=== PATIENT | female | born 1985 | race African-American/Black ===

== ENCOUNTER 2018-01-03 20:17 | Emergency (ER) | payer MEDICAID ==
[~2018-01-03] VITALS: Ht 157.5 cm; Wt 63.0 kg
[2018-01-03 20:30] VITALS: BP 112/69
[2018-01-03] MEDS ORDERED: DiphenhydrAMINE 50mg/ml Inj IM ONE (21:00)
[2018-01-03] MEDS ORDERED: Morphine Sulfate 4mg/ml Inj IM ONE (21:00)
[2018-01-03 21:17] LABS: APPEARANCE,URINE CLEAR; BILIRUBIN, URINE NEGATIVE (NEGATIVE); COLOR,URINE PALE YELLOW; GLUCOSE, URINE (UA) NEGATIVE (NEGATIVE); KETONES,URINE NEGATIVE (NEGATIVE); LEUKOCYTE ESTERASE ,URINE NEGATIVE (NEGATIVE); NITRITE,URINE NEGATIVE (NEGATIVE); PH,URINE 6 (4.5-8.0); PROTEIN,URINE NEGATIVE (NEGATIVE); UROBILINOGEN,URINE 1 MG/DL (0.0-1.0)
[2018-01-03 21:45] VITALS: BP 112/69
[2018-01-03] MEDS ORDERED: Morphine Sulfate 4mg/ml Inj ONE (21:47)
--- NOTE | 2018-01-04 07:12 | Emergency Room Report ---
History of Present Illness General Chief Complaint: Pain Source: Patient Present Illness HPI Patient is a 32-year-old female who presented after increased generalized body pain. Patient prior history of sickle cell disease. She denies any fever. She denies any dizziness or lightheadedness. She reports having similar symptoms previously. Patient states that she is has been taking her medications include hydroxyurea as well as multiple other medications. The patient denies any vomiting or diarrhea Allergies: Coded Allergies: KETOROLAC (Verified Allergy, Mild, 01/03/18) METOCLOPRAMIDE (Unverified Allergy, Unknown, 01/03/18) PROCHLORPERAZINE (Unverified Allergy, Unknown, 01/03/18) Patient History Past Medical History: see triage record Last Menstrual Period: 12/19/17 Now: No : 4 Para: 2 Reviewed Nursing Documentation: PMH: Agreed; PSxH: Agreed Nursing Documentation-PMH Hx Cardiac Problems: Yes - Sickle Cell Anemia Hx Asthma: Yes Hx Neurological Problems: Yes - Depression, anxiety, PTSD Review of Systems All Other Systems: negative except mentioned in HPI Physical Exam Vital Signs Date Time Temp Pulse Resp B/P (MAP) Pulse Ox O2 Delivery O2 Flow Rate FiO2 01/03/18 20:24 98.8 83 16 112/69 99 Room Air 98.8 General Appearance: well appearing, no apparent distress, alert, GCS 15, non- toxic Head: normocephalic, atraumatic Eyes: bilateral eye PERRL, bilateral eye other - conjunctiva pink ENT: hearing grossly normal, normal voice Neck: full range of motion, supple Respiratory: no respiratory distress, speaking full sentences Cardiovascular #1: normal inspection, normal peripheral pulses, regular rate, rhythm Gastrointestinal: normal inspection, normal bowel sounds, non tender, soft Musculoskeletal: no calf tenderness Neurologic: normal gait Psychiatric: mood/affect normal Skin: no rash Medical Decision Making Diagnostic Impression: Primary Impression: Chronic pain Additional Impression: Sickle cell anemia ER Course Patient presented for sickle cell pain. Differential diagnosis included but was not limited to have sickle cell pain crisis, aplastic crisis, sequestration , osteomyelitis, acute chest syndrome among others. Patient has a benign exam and does not appear to require any further imaging or laboratory testing at this time. The patient was given IM pain medications. the patient improvement in symptoms and subsequently discharge.The patient is advised to follow up with primary care doctor in 1-2 days. Patient is advised to return if any worsening condition or if any changes in status that are concerning. This report is dictated with [employer] proposal development manager software which may occasionally lead to discrepancies related to use of this software. Labs Test 01/03/18 20:55 Urine Color Pale yellow Urine Appearance Clear Urine pH 6 (4.5-8.0) Urine Specific [place]roix 1.015 (1.005-1.035) Urine Protein Negative (NEGATIVE) Urine Glucose (UA) Negative (NEGATIVE) Urine Ketones Negative (NEGATIVE) Urine Occult Blood Negative (NEGATIVE) Urine Nitrite Negative (NEGATIVE) Urine Bilirubin Negative (NEGATIVE) Urine Urobilinogen 1 MG/DL (0.0-1.0) Urine Leukocyte Esterase Negative (NEGATIVE) Last Vital Signs Date Time Temp Pulse Resp B/P (MAP) Pulse Ox O2 Delivery O2 Flow Rate FiO2 01/03/18 21:45 98.8 01/03/18 21:45 16 112/69 99 Room Air 01/03/18 20:24 83 Status: improved Disposition: HOME, SELF-CARE Condition: Stable Referrals: NON PHYSICIAN (PCP) Patient Instructions: Sickle Cell Anemia, Adult Additional Instructions: Follow up with your c iron worker for recheck in 1-2 days Selvin Lee January 04, 2018 07:12
== END 2018-01-03 21:45 | disposition home or self-care (01) ==
LOC: EMR 21:35
DX: G89.29 Other chronic pain (principal); D57.1 Sickle-cell disease without crisis; J45.909 Unspecified asthma, uncomplicated; F32.9 Major depressive disorder, single episode, unspecified
CPT/HCPCS: 81003; 96372; 99283; J1200; J2270

== ENCOUNTER 2018-02-10 16:55 | Inpatient (IN) | payer MEDICAID ==
[~2018-02-10] VITALS: Ht 157.5 cm; Wt 64.4 kg
[2018-02-10 17:28] VITALS: BP 97/64
[2018-02-10] MEDS ORDERED: Morphine Sulfate 10mg/ml Inj IVP ONE ×2 (17:30→22:00)
--- NOTE | 2018-02-10 18:00 | Emergency Room Report ---
History of Present Illness General Chief Complaint: Pain Source: Patient, Medical Record Present Illness HPI 32-year-old female with history of sickle cell disease complains of having a pain crisis involving her back bilateral hips that has been on for 4 days she reports she thinks is secondary to having recent dilatation and curettage about 1 week ago. She reports she is no longer having vaginal bleeding but thinks she did lose a lot of blood at that time. She denies fevers, chest pain, abdominal pain, dysuria, hematuria, frequency, vomiting or diarrhea or any other symptoms. She reports the pain is typical over 60 pain crisis throbbing and severe, reports minimal relief with home Dilaudid 4 mg by mouth tablets. Allergies: Coded Allergies: KETOROLAC (Verified Allergy, Mild, 01/03/18) METOCLOPRAMIDE (Unverified Allergy, Unknown, 01/03/18) PROCHLORPERAZINE (Unverified Allergy, Unknown, 01/03/18) Patient History Past Medical History: see triage record Last Menstrual Period: d&c done 1 week ago Reviewed Nursing Documentation: PMH: Agreed; PSxH: Agreed Nursing Documentation-PMH Past Medical History: No History, Except For Hx Cardiac Problems: Yes - Sickle Cell Anemia Hx Asthma: Yes Hx Neurological Problems: Yes - Depression, anxiety, PTSD Review of Systems All Other Systems: negative except mentioned in HPI Physical Exam Vital Signs Date Time Temp Pulse Resp B/P (MAP) Pulse Ox O2 Delivery O2 Flow Rate FiO2 02/10/18 17:00 99.0 84 18 97/64 100 Room Air 99.0 Sp02 EP Interpretation: reviewed, normal General Appearance: no apparent distress, alert, non-toxic Head: normocephalic Eyes: bilateral eye normal inspection, bilateral eye PERRL, bilateral eye EOMI ENT: normal ENT inspection, hearing grossly normal, normal pharynx, no angioedema, normal voice, moist mucus membranes Neck: normal inspection, full range of motion, supple, supple/symm/no masses Respiratory: chest non-tender, lungs clear, normal breath sounds, chest symmetrical, palpation of chest normal Cardiovascular #1: normal peripheral pulses, regular rate, rhythm Cardiovascular #2: 2+ radial (R), 2+ radial (L) Gastrointestinal: normal inspection, non tender, soft, no mass, no guarding, no rebound Rectal: deferred Genitourinary: normal inspection, no CVA tenderness Musculoskeletal: back normal, gait/station normal, normal range of motion, non- tender, no calf tenderness Neurologic: alert, responsive, striping machine operator III-XII nml as tested, motor strength/tone normal, sensory intact, speech normal Psychiatric: judgement/insight normal, memory normal, mood/affect normal, no suicidal/homicidal ideation Skin: normal color, no rash, warm/dry, normal turgor Lymphatic: no adenopathy Medical Decision Making Diagnostic Impression: Primary Impression: Sickle cell anemia Additional Impression: Chronic pain ER Course Patient doing well, in no distress, but complaining of severe pain. Was given morphine IM x2, then I placed an IV using US, so will give 3rd dose of 10mg morphine. Last Vital Signs Date Time Temp Pulse Resp B/P (MAP) Pulse Ox O2 Delivery O2 Flow Rate FiO2 02/10/18 17:28 99.0 84 18 97/64 100 Room Air 99.0 Disposition: ADMITTED INPATIENT Condition: Stable Signed Out To: Dr. Manjarrez to admit for persistent SC pain KHADIJAH YUAN M.D Feb 10, 2018 18:00
[2018-02-10 18:36] LABS: ANION GAP 10 mmol/L (5-15); BLOOD UREA NITROGEN 10 mg/dL (7-18); CALCIUM 8.8 MG/DL (8.5-10.1); CARBON DIOXIDE 22 MMOL/L (21-32); CHLORIDE 102 MMOL/L (98-107); CREATININE 0.6 MG/DL (0.55-1.30); POTASSIUM 3.8 MMOL/L (3.5-5.1); SODIUM 134 MMOL/L (136-145)
[2018-02-10] MEDS ORDERED: Morphine Sulfate 10mg/ml Inj IM ONE (19:15)
[2018-02-10] MEDS ORDERED: ZOLOFT25 MG ORAL (19:33)
[2018-02-10] MEDS ORDERED: FOLIC ACID1 MG ORAL (19:33)
[2018-02-10] MEDS ORDERED: SEROQUEL200 MG ORAL (19:33)
[2018-02-10] MEDS ORDERED: ZOFRAN4 M3 ORAL (19:33)
[2018-02-10] MEDS ORDERED: BENADRYL25 MG ORAL (19:33)
[2018-02-10] MEDS ORDERED: IRON159 MG PO (19:33)
[2018-02-10] MEDS ORDERED: HYDREA500 MG PO (19:33)
[2018-02-10] MEDS ORDERED: TRAZODONE HCL150 MG ORAL (19:33)
[2018-02-10] MEDS ORDERED: HYDROMORPHO1 MG/1 M4 PO (19:33)
[2018-02-10 20:06] VITALS: BP 106/71
[2018-02-10 20:29] LABS: BASOPHILS % (AUTO) 0.5 % (0.0-2.0); EOSINOPHILS % (AUTO) 1.6 % (0.0-3.0); HEMATOCRIT 33.4 % (37.0-47.0); HEMOGLOBIN 10.3 G/DL (12.0-16.0); LYMPHOCYTES % (AUTO) 20.9 % (20.0-45.0); MEAN CORPUSCULAR VOLUME 84 FL (80-99); MONOCYTES % (AUTO) 4.9 % (1.0-10.0); PLATELET COUNT 245 K/UL (150-450); RED BLOOD COUNT 3.96 M/UL (4.20-5.40); WHITE BLOOD COUNT 6.9 K/UL (4.8-10.8)
[2018-02-11 00:15] VITALS: BP 118/73
[2018-02-11] MEDS ORDERED: TRAZODONE HCL50 MG ORAL (00:40)
[2018-02-11] MEDS ORDERED: FERROUS SULFAT325 MG ORAL (00:40)
[2018-02-11] MEDS ORDERED: ZOLOFT100 MG ORAL (00:40)
[2018-02-11] MEDS ORDERED: SERTRALINE HCL50 MG ORAL (00:40)
[2018-02-11] MEDS ORDERED: HYDROMORPHONE HC4 M1 PO (00:40)
[2018-02-11] MEDS ORDERED: HYDROmorphone 4mg tab ORAL PRN ×2 (00:45→14:15)
[2018-02-11] MEDS: Morphine Sulfate 4mg/ml Inj SUBQ PRN ×2 (01:06→09:53)
[2018-02-11] MEDS: QUEtiapine 200mg tab ORAL SCH ×4 (01:12→21:27)
[2018-02-11 08:00] VITALS: BP 100/62
[2018-02-11] MEDS: Hydroxyurea 500mg cap ORAL SCH ×3 (09:53→21:28)
[2018-02-11] MEDS: Sertraline 50mg tab ORAL SCH (09:53)
[2018-02-11] MEDS: TraZODone 50mg tab ORAL SCH ×3 (09:53→21:27)
[2018-02-11] MEDS ORDERED: Heparin 2000 units/Ns 1000ml INJ PRN (10:15)
[2018-02-11] MEDS ORDERED: Lidocaine 1% Plain 30 ml INJ PRN (10:15)
[2018-02-11 12:00] VITALS: BP 98/49
--- NOTE | 2018-02-11 12:45 | History and Physical Report ---
DATE OF ADMISSION: 02/10/2018 HISTORY OF PRESENT ILLNESS: This is a 32-year-old female, who has a history of sickle cell disease. She reports having three to four crises every six months. She reports [facility] This occurred about a week or so ago. She states she started having a crisis and she came to the [facility] for management and care. The patient reports that she takes Dilaudid 4 mg every six hours at home. PAST MEDICAL HISTORY: Notable for sickle cell disease, depression, anxiety, PTSD, and previous partial splenectomy. ALLERGIES: Toradol, Reglan, and procarbazine. HOME MEDICATIONS: Include Dilaudid, hydroxyurea, folic acid, trazodone, Zoloft, Benadryl, and Zofran. REVIEW OF SYSTEMS: The patient denies any headaches, hematemesis, melena, hematochezia, or weight loss. PHYSICAL EXAMINATION: GENERAL: Reveals a young female. VITAL SIGNS: Blood pressure is 100/60, heart rate is 74, saturations 100% on room air, and she is afebrile. HEENT: Unremarkable. LUNGS: Clear breath sounds bilaterally. ABDOMEN: Soft. NEUROLOGIC: Nonfocal. LABORATORY DATA: Laboratory testing shows normal CBC except hemoglobin of 10.3, there is mild microcytosis and hypochromia. Sodium 134, remaining laboratories unremarkable. IMPRESSION: 1. Sickle cell crisis. 2. Sickle cell disease. 3. Previous partial splenectomy. 4. History of previous D and C. 5. PTSD. 6. Depression. 7. Anxiety. DISCUSSION: Admitted to the hospital. Continue home medications. We will request a PICC line. We will request pain management consultation. Morphine to be given subcutaneous in the interim. We will follow. Javan Manjarrez M.D. DR: BRYNN JOB#: [id number] CC:
[2018-02-11] MEDS: Morphine Sulfate 4mg/ml Inj IVP PRN ×3 (15:01→22:48)
--- NOTE | 2018-02-11 15:56 | Diagnostic Imaging Report ---
Indications: Needs long-term IV access Technique: Ultrasound confirms patent compressible left basilic vein. Total sterile technique, including sterile probe cover and sterile gel, hat, mask,, sterile gown, large sterile drape, and preparation with 2% chlorhexidine utilized. Local anesthesia with 1% lidocaine. Under real-time ultrasound guidance, puncture basilic vein using 21-gauge needle, documented and archived, passage 0.018 guidewire under direct fluoroscopy, which was used to determine appropriate catheter length, exchange for 5 Italian peel-away sheath. 5 Italian Bard dual-lumen power PICC cut to 42 cm. It was inserted through the peel-away sheath. Peel-away sheath and guidewire removed. Catheter fixed to the skin. Both catheter ports aspirated and flushed. Patient tolerated procedure well, without immediate complication. Digital radiograph documents satisfactory catheter tip position, at the cavoatrial junction. Total fluoroscopy time 0.2 minutes. Total dose area product 6.8 dGycm2 Impression: Successful placement of left arm PICC under sonographic and fluoroscopic guidance, as described above.
[2018-02-11 16:00] VITALS: BP 102/53
[2018-02-11] MEDS ORDERED: DiphenhydrAMINE 50mg/ml Inj IVP ONE (17:00)
[2018-02-11 20:00] VITALS: BP 108/65
[2018-02-11] MEDS: Dyna-Hex 2% Top Sol 2oz TOPIC SCH (20:00)
[2018-02-11] MEDS: Sertraline 100mg tab ORAL SCH (21:28)
[2018-02-12] VITALS: BP 107/64
[2018-02-12] MEDS: Morphine Sulfate 4mg/ml Inj IVP PRN ×6 (00:21→20:17)
[2018-02-12 04:00] VITALS: BP 106/72
[2018-02-12 08:00] VITALS: BP 140/70
[2018-02-12] MEDS: TraZODone 50mg tab ORAL SCH ×2 (08:24→20:51)
[2018-02-12] MEDS: Sertraline 50mg tab ORAL SCH (08:24)
[2018-02-12] MEDS: QUEtiapine 200mg tab ORAL SCH ×2 (08:24→20:51)
[2018-02-12] MEDS: Hydroxyurea 500mg cap ORAL SCH ×2 (08:24→20:51)
--- NOTE | 2018-02-12 08:27 | Pulmonology Progress Note ---
Assessment/Plan Assessment/Plan 1. Sickle cell crisis. 2. Sickle cell disease. 3. Previous partial splenectomy. 4. History of previous D and C. 5. PTSD. 6. Depression. 7. Anxiety. DISCUSSION: Admitted to the hospital. Continue home medications. S/p PICC line. I will again request pain management consultation. Morphine to be given subcutaneous in the interim. Subjective Interval Events: PICC line in place; on IV fluids Constitutional: Reports: other HEENT: Repors: no symptoms Respiratory: Reports: no symptoms Cardiovascular: Reports: no symptoms Gastrointestinal/Abdominal: Reports: no symptoms - pain Allergies: Coded Allergies: KETOROLAC (Verified Allergy, Mild, 01/03/18) METOCLOPRAMIDE (Unverified Allergy, Unknown, 01/03/18) PROCHLORPERAZINE (Unverified Allergy, Unknown, 01/03/18) Objective Last 24 Hour Vital Signs Date Time Temp Pulse Resp B/P (MAP) Pulse Ox O2 Delivery O2 Flow Rate FiO2 02/12/18 08:24 98.3 02/12/18 04:00 98.3 80 19 106/72 100 Room Air 98.3 02/12/18 00:00 98.6 90 20 107/64 98 Room Air 98.6 02/11/18 22:27 97.9 02/11/18 21:28 97.9 02/11/18 20:00 98.5 74 19 108/65 100 Room Air 98.5 02/11/18 19:18 97.9 02/11/18 18:48 97.9 02/11/18 16:00 97.9 82 20 102/53 100 Room Air 97.9 02/11/18 15:01 97.9 02/11/18 12:00 97.9 83 20 98/49 99 Room Air 97.9 02/11/18 10:23 98.0 02/11/18 09:53 98.0 Intake and Output 02/11/18 02/12/18 19:00 07:00 Intake Total 320 ml 700 ml Balance 320 ml 700 ml Intake Oral 220 ml IV Total 100 ml 700 ml # Voids 4 2 General Appearance: no acute distress HEENT: normocephalic Respiratory/Chest: chest wall non-tender, lungs clear Cardiovascular: normal peripheral pulses, normal rate Current Medications Medications (Trade) Dose Ordered Sig/Dileep Route PRN Reason Start Time Stop Time Status Last Admin Dose Admin Chlorhexidine Gluconate (Dannielle-Hex 2%) 1 applic DAILY@2000 TOPIC 02/11/18 20:00 03/13/18 19:59 02/11/18 20:00 Diphenhydramine HCl (Benadryl) 50 mg Q4H PRN ORAL Itching 02/11/18 00:45 03/13/18 00:44 Heparin Sodium/ Sodium Chloride (Heparin 2000 units/Ns 1000ml premix) 2,000 unit ONCE PRN INJ FOR PICC LINE PLACEMENT 02/11/18 10:15 02/13/18 10:14 Hydromorphone HCl (Dilaudid) 4 mg Q4H PRN ORAL Breakthrough Pain 02/11/18 14:15 02/18/18 14:14 02/11/18 21:28 Hydroxyurea (Hydrea) 500 mg Q12HR ORAL 02/11/18 21:00 02/16/18 08:59 02/12/18 08:24 Lidocaine HCl (Xylocaine 1% 30ml) 30 ml ONCE PRN INJ FOR PICC LINE PLACEMENT 02/11/18 10:15 02/13/18 10:14 Morphine Sulfate (Morphine Sulfate) 4 mg Q4H PRN IVP Severe Pain (Pain Scale 7-10) 02/11/18 15:00 02/18/18 14:59 02/12/18 08:24 Ondansetron HCl (Zofran) 8 mg Q4HR PRN ORAL Nausea & Vomiting 02/11/18 00:45 03/13/18 00:44 Quetiapine Fumarate (SEROquel) 400 mg Q12HR ORAL 02/11/18 21:00 03/13/18 00:56 02/12/18 08:24 Sertraline HCl (Zoloft) 50 mg DAILY ORAL 02/11/18 09:00 03/13/18 08:59 02/12/18 08:24 Sertraline HCl (Zoloft) 100 mg BEDTIME ORAL 02/11/18 21:00 03/13/18 20:59 02/11/18 21:28 Sodium Chloride 1,000 ml @ 100 mls/hr Q10H IV 02/11/18 16:45 03/13/18 16:44 02/12/18 03:10 Trazodone HCl (Desyrel) 50 mg Q12HR ORAL 02/11/18 21:00 03/13/18 08:59 02/12/18 08:24 Javan Manjarrez MD Feb 12, 2018 08:27
--- NOTE | 2018-02-12 08:48 | Consultation ---
History of Present Illness General Date patient seen: Feb 12, 2018 Chief Complaint: Present Illness Allergies: Coded Allergies: KETOROLAC (Verified Allergy, Mild, 01/03/18) METOCLOPRAMIDE (Unverified Allergy, Unknown, 01/03/18) PROCHLORPERAZINE (Unverified Allergy, Unknown, 01/03/18) Medication History Scheduled Ferrous Sulfate* (Ferrous Sulfate*), 325 MG ORAL DAILY, (Reported) Folic Acid* (Folic Acid*), 1 MG ORAL DAILY, (Reported) Hydroxyurea* (Hydrea*), 400 MG PO BID, (Reported) Quetiapine Fumarate* (Seroquel*), 400 MG ORAL TWICE A DAY, (Reported) Sertraline Hcl* (Zoloft*), 100 MG ORAL HS, (Reported) Sertraline Hcl* (Zoloft*), 50 MG ORAL DAILY, (Reported) Trazodone Hcl* (Desyrel*), 50 MG ORAL BID, (Reported) Scheduled PRN Diphenhydramine Hcl* (Benadryl*), 50 MG ORAL Q4H PRN for Itching, (Reported) Hydromorphone Hcl (Hydromorphone Hcl), 4 MG PO Q4HR PRN for For Pain, (Reported) Ondansetron* (Zofran*), 8 MG ORAL Q4HR PRN for Nausea & Vomiting, (Reported) Patient History Healthcare decision maker Resuscitation status Full Code Advanced Directive on File Physical Exam Last 24 Hour Vital Signs Date Time Temp Pulse Resp B/P (MAP) Pulse Ox O2 Delivery O2 Flow Rate FiO2 02/12/18 08:24 98.3 02/12/18 04:00 98.3 80 19 106/72 100 Room Air 98.3 02/12/18 00:00 98.6 90 20 107/64 98 Room Air 98.6 02/11/18 22:27 97.9 02/11/18 21:28 97.9 02/11/18 20:00 98.5 74 19 108/65 100 Room Air 98.5 02/11/18 19:18 97.9 02/11/18 18:48 97.9 02/11/18 16:00 97.9 82 20 102/53 100 Room Air 97.9 02/11/18 15:01 97.9 02/11/18 12:00 97.9 83 20 98/49 99 Room Air 97.9 02/11/18 10:23 98.0 02/11/18 09:53 98.0 Intake and Output 02/11/18 02/12/18 19:00 07:00 Intake Total 320 ml 700 ml Balance 320 ml 700 ml Intake Oral 220 ml IV Total 100 ml 700 ml # Voids 4 2 Height (Feet): 5 Height (Inches): 2.00 Weight (Pounds): 142 Medications Current Medications Medications (Trade) Dose Ordered Sig/Dileep Route PRN Reason Start Time Stop Time Status Last Admin Dose Admin Chlorhexidine Gluconate (Dannielle-Hex 2%) 1 applic DAILY@2000 TOPIC 02/11/18 20:00 03/13/18 19:59 02/11/18 20:00 Diphenhydramine HCl (Benadryl) 50 mg Q4H PRN ORAL Itching 02/11/18 00:45 03/13/18 00:44 Heparin Sodium/ Sodium Chloride (Heparin 2000 units/Ns 1000ml premix) 2,000 unit ONCE PRN INJ FOR PICC LINE PLACEMENT 02/11/18 10:15 02/13/18 10:14 Hydromorphone HCl (Dilaudid) 4 mg Q4H PRN ORAL Breakthrough Pain 02/11/18 14:15 02/18/18 14:14 02/11/18 21:28 Hydroxyurea (Hydrea) 500 mg Q12HR ORAL 02/11/18 21:00 02/16/18 08:59 02/12/18 08:24 Lidocaine HCl (Xylocaine 1% 30ml) 30 ml ONCE PRN INJ FOR PICC LINE PLACEMENT 02/11/18 10:15 02/13/18 10:14 Morphine Sulfate (Morphine Sulfate) 4 mg Q4H PRN IVP Severe Pain (Pain Scale 7-10) 02/11/18 15:00 02/18/18 14:59 02/12/18 08:24 Ondansetron HCl (Zofran) 8 mg Q4HR PRN ORAL Nausea & Vomiting 02/11/18 00:45 03/13/18 00:44 Quetiapine Fumarate (SEROquel) 400 mg Q12HR ORAL 02/11/18 21:00 03/13/18 00:56 02/12/18 08:24 Sertraline HCl (Zoloft) 50 mg DAILY ORAL 02/11/18 09:00 03/13/18 08:59 02/12/18 08:24 Sertraline HCl (Zoloft) 100 mg BEDTIME ORAL 02/11/18 21:00 03/13/18 20:59 02/11/18 21:28 Sodium Chloride 1,000 ml @ 100 mls/hr Q10H IV 02/11/18 16:45 03/13/18 16:44 02/12/18 03:10 Trazodone HCl (Desyrel) 50 mg Q12HR ORAL 02/11/18 21:00 03/13/18 08:59 02/12/18 08:24 Assessment/Plan Assessment/Plan (1) Sickle cell disease (2) Sickle cell crisis (3) Intractable pain seen dictated. Jorge Gonzales Feb 12, 2018 08:48
[2018-02-12] MEDS: DiphenhydrAMINE 50mg/ml Inj IVP PRN ×3 (09:15→21:22)
[2018-02-12 12:00] VITALS: BP 126/65
[2018-02-12] MEDS: HYDROmorphone 4mg tab ORAL PRN ×3 (14:44→22:34)
[2018-02-12 16:00] VITALS: BP 134/61
[2018-02-12 19:47] VITALS: BP 128/71
[2018-02-12] MEDS: Dyna-Hex 2% Top Sol 2oz TOPIC SCH (20:15)
[2018-02-12] MEDS: Sertraline 100mg tab ORAL SCH (20:51)
[2018-02-13] VITALS: BP 105/59
[2018-02-13] MEDS: Morphine Sulfate 4mg/ml Inj IVP PRN ×4 (00:19→12:40)
--- NOTE | 2018-02-13 01:00 | Consultation ---
DATE OF CONSULTATION: 02/12/2018 PAIN MANAGEMENT CONSULTATION CONSULTING PHYSICIAN: Miriam Reynoso M.D. REFERRING PHYSICIAN: Javan Manjarrez M.D. PHYSICIAN GENERAL ACCOUNTANT: Huseyin Leonard CHIEF COMPLAINT: Generalized body pain. HISTORY OF PRESENT ILLNESS: This is a 32-year-old female, who is being seen on the Med/Surg floor of [facility] for initial comprehensive pain management consultation. The patient was admitted under the care of Dr. Manjarrez due to sickle cell disease and sickle cell crisis and has been having generalized body pain, taking Dilaudid 4 mg tablets 4 times a day at home and now, she is in severe pain. We will start her on morphine 4 mg IV every 4 hours as needed for severe pain and Dilaudid 4 mg tablets every 4 hours as needed for severe breakthrough pain. We were consulted so that the patient would have adequate pain control while here in the hospital. At this time, the patient is reporting that her pain has not been well controlled on current medication regimen. We will increase the morphine to 6 mg and change the Dilaudid to severe breakthrough pain as well as start the patient on Percocet 10/325 one tablet every 4 hours as needed for moderate pain. PAST MEDICAL HISTORY: Sickle cell disease, depression, anxiety, posttraumatic stress disorder, and previous partial splenectomy. ALLERGIES: Toradol, Reglan, and procarbazine. SOCIAL HISTORY: Denies smoking tobacco, drinking alcohol, or IV drug abuse. REVIEW OF SYSTEMS: Denies rash, fever, chills, sweating, dizziness, drowsiness, blurred vision, sore throat, or change in her weight. No shortness of breath or chest pain. No nausea, vomiting, diarrhea, or blood in the stool or urine. No bowel or bladder incontinence. No dysuria. She is complaining of generalized body pain. PHYSICAL EXAMINATION: GENERAL: Awake, alert, and oriented. VITAL SIGNS: Blood pressure 106/72, heart rate 80, oxygen saturation 100%, respirations 19, and temperature 98.3 degrees Fahrenheit. Height is 5 feet 2 inches and weight is 143 pounds. HEENT: PERRLA. NECK: Range of motion is full in all directions. No tenderness to paracervical muscles. No adenopathy. LUNGS: Decreased breath sounds bilaterally. HEART: Regular. ABDOMEN: Tenderness to palpation. BACK: Range of motion is decreased in flexion and extension. EXTREMITIES: Upper and lower extremity range of motion is decreased due to the patient's clinical condition. No cyanosis. No clubbing. No edema. Sensory is intact. Reflexes are not obtainable. No adenopathy. ASSESSMENT AND PLAN: This is a 32-year-old female with sickle cell disease, sickle cell crisis, and intractable pain. We will increase the morphine to 6 mg mg IV every 4 hours as needed for severe pain. We will change the Dilaudid to 4 mg tablets every 4 hours as needed for severe breakthrough pain and start the patient on Percocet 10/325 mg one tablet every 4 hours as needed for moderate breakthrough pain. The patient was discussed with Dr. Reynoso and Dr. Reynoso concurred. We will follow the patient. Thank you very much for the courtesy of this consultation. Miriam Reynoso M.D. MARLON Leonard DR: WESTON JOB#: [id number] CC: CHRISTY
[2018-02-13 04:00] VITALS: BP 112/58
[2018-02-13 08:00] VITALS: BP 119/66
--- NOTE | 2018-02-13 08:34 | Pulmonology Progress Note ---
Assessment/Plan Assessment/Plan 1. Sickle cell crisis. 2. Sickle cell disease. 3. Previous partial splenectomy. 4. History of previous D and C. 5. PTSD. 6. Depression. 7. Anxiety. DISCUSSION: Seen by pain service Will dc home DC pICC Subjective Interval Events: Better Constitutional: Reports: no symptoms HEENT: Repors: no symptoms Respiratory: Reports: no symptoms Cardiovascular: Reports: no symptoms Gastrointestinal/Abdominal: Reports: no symptoms Allergies: Coded Allergies: KETOROLAC (Verified Allergy, Mild, 01/03/18) METOCLOPRAMIDE (Unverified Allergy, Unknown, 01/03/18) PROCHLORPERAZINE (Unverified Allergy, Unknown, 01/03/18) Objective Last 24 Hour Vital Signs Date Time Temp Pulse Resp B/P (MAP) Pulse Ox O2 Delivery O2 Flow Rate FiO2 02/13/18 04:00 98.1 82 18 112/58 100 Room Air 98.1 02/13/18 00:00 97.4 84 18 105/59 99 Room Air 97.4 02/12/18 19:47 98.1 75 20 128/71 99 Room Air 98.1 02/12/18 18:33 98.8 02/12/18 16:50 98.8 02/12/18 16:20 98.8 02/12/18 16:00 98.8 78 20 134/61 99 Room Air 98.8 02/12/18 15:43 98.3 02/12/18 14:44 98.3 02/12/18 12:18 98.3 02/12/18 12:00 98.4 75 20 126/65 97 Room Air 98.4 02/12/18 08:54 98.3 Intake and Output 02/12/18 02/13/18 19:00 07:00 Intake Total 1940 ml 1435 ml Balance 1940 ml 1435 ml Intake Oral 840 ml 360 ml IV Total 1100 ml 1075 ml # Voids 2 3 General Appearance: no acute distress HEENT: normocephalic Respiratory/Chest: chest wall non-tender, lungs clear Cardiovascular: normal peripheral pulses Current Medications Medications (Trade) Dose Ordered Sig/Dileep Route PRN Reason Start Time Stop Time Status Last Admin Dose Admin Chlorhexidine Gluconate (Dannielle-Hex 2%) 1 applic DAILY@1999 TOPIC 02/11/18 20:00 03/13/18 19:59 02/12/18 20:15 Diphenhydramine HCl (Benadryl) 50 mg Q4H PRN ORAL Itching 02/12/18 21:45 03/14/18 21:44 Heparin Sodium/ Sodium Chloride (Heparin 2000 units/Ns 1000ml premix) 2,000 unit ONCE PRN INJ FOR PICC LINE PLACEMENT 02/11/18 10:15 02/13/18 10:14 Hydromorphone HCl (Dilaudid) 4 mg Q4H PRN ORAL severe Breakthrough Pain 02/12/18 10:15 02/19/18 10:14 02/12/18 22:34 Hydroxyurea (Hydrea) 500 mg Q12HR ORAL 02/11/18 21:00 02/16/18 08:59 02/12/18 20:51 Lidocaine HCl (Xylocaine 1% 30ml) 30 ml ONCE PRN INJ FOR PICC LINE PLACEMENT 02/11/18 10:15 02/13/18 10:14 Morphine Sulfate (Morphine Sulfate) 6 mg Q4H PRN IVP Severe Pain (Pain Scale 7-10) 02/12/18 11:00 02/19/18 10:59 02/13/18 04:26 Ondansetron HCl (Zofran) 8 mg Q4HR PRN ORAL Nausea & Vomiting 02/11/18 00:45 03/13/18 00:44 Oxycodone/ Acetaminophen (Percocet 10/325) 1 tab Q4H PRN ORAL moderate breakthrough pain 02/12/18 08:45 02/19/18 08:44 Quetiapine Fumarate (SEROquel) 400 mg Q12HR ORAL 02/11/18 21:00 03/13/18 00:56 02/12/18 20:51 Sertraline HCl (Zoloft) 50 mg DAILY ORAL 02/11/18 09:00 03/13/18 08:59 02/12/18 08:24 Sertraline HCl (Zoloft) 100 mg BEDTIME ORAL 02/11/18 21:00 03/13/18 20:59 02/12/18 20:51 Sodium Chloride 1,000 ml @ 100 mls/hr Q10H IV 02/11/18 16:45 03/13/18 16:44 02/13/18 00:19 Trazodone HCl (Desyrel) 50 mg Q12HR ORAL 02/11/18 21:00 03/13/18 08:59 02/12/18 20:51 Javan Manjarrez MD Feb 13, 2018 08:34
[2018-02-13] MEDS: Hydroxyurea 500mg cap ORAL SCH (08:36)
[2018-02-13] MEDS: QUEtiapine 200mg tab ORAL SCH (08:36)
[2018-02-13] MEDS: TraZODone 50mg tab ORAL SCH (08:36)
[2018-02-13] MEDS: Sertraline 50mg tab ORAL SCH (08:37)
[2018-02-13 12:00] VITALS: BP 114/64
--- NOTE | 2018-02-13 14:10 | General Progress Note ---
Assessment/Plan Assessment/Plan (1) Sickle cell disease (2) Sickle cell crisis (3) Intractable pain We will continued Morphine Dilaudid and Percocet. Pt will be discharged home as per senior project manager. No Rx needed for discharge D/w Dr. Reynoso and he concurred. Subjective Date patient seen: Feb 13, 2018 Time patient seen: 01:00 - pm Constitutional: Reports: no symptoms HEENT: Reports: no symptoms Cardiovascular: Reports: no symptoms Respiratory: Reports: no symptoms Gastrointestinal/Abdominal: Reports: no symptoms Genitourinary: Reports: no symptoms Neurologic/Psychiatric: Reports: no symptoms Endocrine: Reports: no symptoms Hematologic/Lymphatic: Reports: no symptoms Allergies: Coded Allergies: KETOROLAC (Verified Allergy, Mild, 01/03/18) METOCLOPRAMIDE (Unverified Allergy, Unknown, 01/03/18) PROCHLORPERAZINE (Unverified Allergy, Unknown, 01/03/18) Subjective Patient is doing better and is being discharged home as per senior project manager. Objective Last 24 Hour Vital Signs Date Time Temp Pulse Resp B/P (MAP) Pulse Ox O2 Delivery O2 Flow Rate FiO2 02/13/18 13:10 98.2 02/13/18 12:40 98.2 02/13/18 12:00 98.2 86 19 114/64 97 Room Air 98.2 02/13/18 08:36 98.1 02/13/18 08:00 98.1 86 19 119/66 100 Room Air 98.1 02/13/18 04:00 98.1 82 18 112/58 100 Room Air 98.1 02/13/18 00:00 97.4 84 18 105/59 99 Room Air 97.4 02/12/18 19:47 98.1 75 20 128/71 99 Room Air 98.1 02/12/18 18:33 98.8 02/12/18 16:20 98.8 02/12/18 16:00 98.8 78 20 134/61 99 Room Air 98.8 02/12/18 15:43 98.3 02/12/18 14:44 98.3 Intake and Output 02/12/18 02/13/18 19:00 07:00 Intake Total 1940 ml 1435 ml Balance 1940 ml 1435 ml Intake Oral 840 ml 360 ml IV Total 1100 ml 1075 ml # Voids 2 3 Height (Feet): 5 Height (Inches): 2.00 Weight (Pounds): 142 General Appearance: no apparent distress, alert EENT: PERRL/EOMI, normal ENT inspection Neck: non-tender, normal alignment Cardiovascular: normal rate, regular rhythm Respiratory/Chest: lungs clear, normal breath sounds Abdomen: non tender, soft Extremities: non-tender Edema: no edema noted Arm (L), no edema noted Arm (R), no edema noted Leg (L), no edema noted Leg (R), no edema noted Pedal (L), no edema noted Pedal (R), no edema noted Generalized Neurologic: alert, oriented x 3 Skin: warm/dry Jorge Gonzales Feb 13, 2018 14:10
--- NOTE | 2018-02-14 09:33 | Discharge Summary ---
Discharge Summary Discharge Summary _ DATE OF ADMISSION: 02/10/2018 DATE OF DISCHARGE: 02/13/2018 REASON FOR ADMISSION: 32 years old female with history of sickle cell disease, presented to emergency department complaining of pain crisis, involving her back and bilateral hips. Symptoms present for 4 days. She thinks that the pain crisis was secondary to having recent dilatation and curettage about one week ago. Patient no longer having vaginal bleeding. She denied fever, chills , chest pain , abdominal pain , dysuria, hematuria, vomiting or diarrhea. She reported pain as throbbing, severe, with minimal relief with oral Dilaudid 4 mg that she was taking at home. Upon evaluation in emergency room, vital signs were stable. Laboratory workup revealed no leukocytosis, hemoglobin 10.3 hematocrit 33.4. Stable electrolytes and renal parameters. Patient was admitted with diagnosis of sickle cell crisis, intractable pain. CONSULTANTS: Pain specialist Dr. Reynoso [facility] COURSE: Patient admitted to medical surgical floor . Patient started on the IV hydration. Pain management provided. Pain specialist consulted. Pain was addressed and controlled. Supplemental oxygen was ordered as needed to keep pulse oximetry above 92%. Pulse oximetry was stable on room air. Hydrea was resumed. Home medications for depression and anxiety resumed. DVT prophylaxis provided. Supportive care provided. Bowel regimen instituted. Patient clinically improved and was stable for discharge back home. FINAL DIAGNOSES: Sickle cell crisis Sickle cell disease Intractable pain History of recent D&C History of partial splenectomy PTSD Depression Anxiety DISCHARGE MEDICATIONS: See Medication Reconciliation list. DISCHARGE INSTRUCTIONS: Patient was discharged home. Patient to follow-up with her own overweaver as outpatient I have been assigned to dictate discharge summary for this account. I was not involved in the patient's management. Lupe Saab NP Feb 14, 2018 09:33
== END 2018-02-13 14:35 | disposition home or self-care (01) | DRG 662 ==
LOC: EMR 17:40 → 4W 21:28 → EDBEDREQ 22:42
PROC: 02HV33Z Insertion of Infusion Device into Superior Vena Cava, Percutaneous Approach (ICD-10-PCS; principal; 2018-02-11)
DX: D57.00 Hb-SS disease with crisis, unspecified (principal); F32.9 Major depressive disorder, single episode, unspecified; Z90.81 Acquired absence of spleen; F43.10 Post-traumatic stress disorder, unspecified; F41.9 Anxiety disorder, unspecified; Z88.8 Allergy status to other drugs, medicaments and biological substances
CPT/HCPCS: 36415; 36569; 76937; 80048; 85025; 85044; 86850; 86900; 86901; 96360; 96361; 96372; 96374; 96375; 96376; 96523; 99285; G0378; J2405

== ENCOUNTER 2018-03-15 23:32 | Emergency (ER) | payer SELFPAY ==
[~2018-03-15] VITALS: Ht 157.5 cm; Wt 59.9 kg
[~2018-03-15 23:32] MED LIST: BENADRYL25 MG ORAL; FERROUS SULFAT325 MG ORAL; FOLIC ACID1 MG ORAL; HYDREA500 MG PO; HYDROMORPHO1 MG/1 M4 PO; HYDROMORPHONE HC4 M1 PO; IRON159 MG PO; SEROQUEL200 MG ORAL; SERTRALINE HCL50 MG ORAL; TRAZODONE HCL150 MG ORAL; TRAZODONE HCL50 MG ORAL; ZOFRAN4 M3 ORAL; ZOLOFT100 MG ORAL; ZOLOFT25 MG ORAL
[2018-03-15 23:45] VITALS: BP 126/79
[2018-03-16 00:10] VITALS: BP 126/79
--- NOTE | 2018-03-16 00:32 | Emergency Room Report ---
History of Present Illness General Chief Complaint: Pain Source: Patient Present Illness HPI Patient presents complaining of diffuse body pain Reports that she is having a sickle cell crisis Patient reports that she recently had a D&C procedure and feels that that is irritating her underlying medical condition Patient had taken oral medications at home With very minimal improvement denies any Fevers or chills denies any neck pain Denies any photophobia Allergies: Coded Allergies: KETOROLAC (Verified Allergy, Mild, 01/03/18) METOCLOPRAMIDE (Unverified Allergy, Unknown, 01/03/18) PROCHLORPERAZINE (Unverified Allergy, Unknown, 01/03/18) Patient History Past Medical History: see triage record Pertinent Family History: none Last Menstrual Period: "just had an , no period" Now: No Reviewed Nursing Documentation: PMH: Agreed; PSxH: Agreed Nursing Documentation-PMH Hx Cardiac Problems: No Hx Asthma: Yes Hx Cancer: No Hx Gastrointestinal Problems: No - Sickle Cell Hx Neurological Problems: No Review of Systems All Other Systems: negative except mentioned in HPI Physical Exam Vital Signs Date Time Temp Pulse Resp B/P (MAP) Pulse Ox O2 Delivery O2 Flow Rate FiO2 03/15/18 23:36 97.7 84 18 123/81 97 Room Air 97.7 Sp02 EP Interpretation: reviewed, normal General Appearance: well appearing, no apparent distress Head: normocephalic, atraumatic Eyes: bilateral eye PERRL, bilateral eye EOMI ENT: hearing grossly normal, normal pharynx Neck: full range of motion, supple Respiratory: chest non-tender, lungs clear Cardiovascular #1: regular rate, rhythm Gastrointestinal: non tender, soft Musculoskeletal: normal inspection Neurologic: alert, oriented x3, responsive Skin: normal inspection, normal color Lymphatic: no adenopathy Medical Decision Making Diagnostic Impression: Primary Impression: myalgia ER Course Multiple differentials considered Including but not limited to infectious pathology, sickle cell crisis, dehydration Patient's clinical exam reveals well-hydrated patient, good skin turgor Patient does not appear in acute distress and is resting comfortably Review of medical records reveals recent presentation with similar complaints Last hospitalization revealed normal reticulocyte count and other normal blood work Patient does not show clinical signs of sickle cell crisis At this time I had discussion regarding continued pain control at home Oral hydration And the need for close outpatient follow-up I did not feel patient met any further criteria for emergency intervention at this time Last Vital Signs Date Time Temp Pulse Resp B/P (MAP) Pulse Ox O2 Delivery O2 Flow Rate FiO2 03/16/18 00:10 97.7 72 18 126/79 97 Room Air 97.7 Status: unchanged Disposition: HOME, SELF-CARE Condition: Stable Patient Instructions: Muscle Pain, Adult Additional Instructions: Your recent blood work at this facility, did not reveal any signs of sickle cell crisis. Given that you have repeat pain it is recommended for you to follow-up with your primary first dyer for further pain management and change in care as needed, Juan Alberto Galarza DO Mar 16, 2018 00:32
== END 2018-03-16 00:10 | disposition home or self-care (01) ==
LOC: EMR 23:55
DX: M79.1 Myalgia (principal); Z88.8 Allergy status to other drugs, medicaments and biological substances
CPT/HCPCS: 99282

== ENCOUNTER 2018-03-29 16:13 | Emergency (ER) | payer SELFPAY ==
[~2018-03-29] VITALS: Ht 157.5 cm; Wt 59.9 kg
[2018-03-29 16:39] VITALS: BP 105/68
[2018-03-29 16:49] VITALS: BP 105/68
--- NOTE | 2018-03-29 16:50 | Emergency Room Report ---
History of Present Illness General Chief Complaint: Pain Source: Patient Present Illness HPI Patient presents with daughter who is being seen for URI symptoms Patient herself complains that she had a D&C procedure performed recently also had IUD device placed and was having spotting since the procedure Patient feels that the procedure has exacerbated her sickle cell disease Denies any chest pain denies any shortness of breath However complains of achiness diffusely Denies any lightheadedness denies any vomiting or diarrhea Allergies: Coded Allergies: KETOROLAC (Verified Allergy, Mild, 01/03/18) METOCLOPRAMIDE (Unverified Allergy, Unknown, 01/03/18) PROCHLORPERAZINE (Unverified Allergy, Unknown, 01/03/18) Patient History Past Medical History: see triage record Pertinent Family History: none Last Menstrual Period: none Now: No : 2 Para: 2 Reviewed Nursing Documentation: PMH: Agreed; PSxH: Agreed Nursing Documentation-PMH Hx Cardiac Problems: No Hx Asthma: Yes Hx Cancer: No Hx Gastrointestinal Problems: No - Sickle Cell Hx Neurological Problems: No Review of Systems All Other Systems: negative except mentioned in HPI Physical Exam Vital Signs Date Time Temp Pulse Resp B/P (MAP) Pulse Ox O2 Delivery O2 Flow Rate FiO2 03/29/18 16:26 97.8 98 15 105/68 97 Room Air 97.9 Sp02 EP Interpretation: reviewed, normal General Appearance: well appearing, no apparent distress Head: normocephalic, atraumatic Eyes: bilateral eye PERRL, bilateral eye EOMI ENT: hearing grossly normal, normal pharynx, TMs + canals normal, uvula midline Neck: full range of motion, supple, no meningismus, no bony tend Respiratory: lungs clear, normal breath sounds, no rhonchi, no respiratory distress, no retraction, no accessory muscle use Cardiovascular #1: normal peripheral pulses, regular rate, rhythm, no edema, no gallop, no JVD, no murmur Gastrointestinal: normal bowel sounds, non tender, soft, no mass, no organomegaly, non-distended, no guarding, no hernia, no pulsatile mass, no rebound Genitourinary: no CVA tenderness Musculoskeletal: normal inspection Neurologic: oriented x3, responsive, guide setter III-XII nml as tested, motor strength/ tone normal, sensory intact Psychiatric: mood/affect normal Skin: normal color, no rash, warm/dry, palpation normal Lymphatic: normal inspection, no adenopathy Medical Decision Making Diagnostic Impression: Primary Impression: vaginal bleeding Additional Impression: Myalgia ER Course Multiple differentials are considered including but not limited to sickle cell crisis, anemia, dehydration Patient has a benign medical evaluation Hemodynamically stable Appears well-hydrated Patient is encouraged to follow-up with her gynecology specialty who performed the procedure And close follow-up with primary physician for further outpatient blood work and imaging is needed She had a benign medical screening evaluation does have blood work from recent presentation. And did not require to have these repeated emergently Last Vital Signs Date Time Temp Pulse Resp B/P (MAP) Pulse Ox O2 Delivery O2 Flow Rate FiO2 03/29/18 16:39 97.9 98 15 105/68 97 Room Air 97.9 Status: unchanged Disposition: HOME, SELF-CARE Condition: Stable Patient Instructions: Muscle Pain, Adult, Abnormal Uterine Bleeding, Easy-to- Read Additional Instructions: Patient is provided with the discharge instructions notified to follow up with primary doctor in the next 2-3 days otherwise return to the er with any worsening symptoms. Please note that this report is being documented using [employer] technology. This can lead to erroneous entry secondary to incorrect interpretation by the dictating instrument. Juan Alberto Galarza DO Mar 29, 2018 16:50
== END 2018-03-29 16:49 | disposition home or self-care (01) ==
LOC: EMR 16:30
DX: N93.9 Abnormal uterine and vaginal bleeding, unspecified (principal); M79.1 Myalgia; J45.909 Unspecified asthma, uncomplicated; D57.1 Sickle-cell disease without crisis
CPT/HCPCS: 99283

== ENCOUNTER 2018-05-21 15:55 | Emergency (ER) | payer SELFPAY ==
[~2018-05-21] VITALS: Ht 61 cm; Wt 59.9 kg
[2018-05-21 16:08] VITALS: BP 107/72
[2018-05-21] MEDS ORDERED: Norco 5mg/325mg tab ORAL ONE (16:15)
[2018-05-21 17:04] LABS: BASOPHILS % (AUTO) 0.8 % (0.0-2.0); EOSINOPHILS % (AUTO) 2.8 % (0.0-3.0); HEMATOCRIT 29.9 % (37.0-47.0); HEMOGLOBIN 9.2 G/DL (12.0-16.0); LYMPHOCYTES % (AUTO) 37.4 % (20.0-45.0); MEAN CORPUSCULAR VOLUME 80 FL (80-99); MONOCYTES % (AUTO) 7.4 % (1.0-10.0); NEUTROPHILS % (AUTO) 51.5 % (45.0-75.0); PLATELET COUNT 295 K/UL (150-450); RED BLOOD COUNT 3.73 M/UL (4.20-5.40); RED CELL DISTRIBUTION WIDTH 14.6 % (11.6-14.8); WHITE BLOOD COUNT 6.2 K/UL (4.8-10.8)
[2018-05-21 17:19] LABS: ANION GAP 6 mmol/L (5-15); BLOOD UREA NITROGEN 9 mg/dL (7-18); CALCIUM 8.4 MG/DL (8.5-10.1); CARBON DIOXIDE 26 MMOL/L (21-32); CHLORIDE 107 MMOL/L (98-107); CREATININE 0.9 MG/DL (0.55-1.30); POTASSIUM 3.5 MMOL/L (3.5-5.1); SODIUM 139 MMOL/L (136-145)
[2018-05-21 17:23] LABS: ALANINE AMINOTRANSFERASE 14 U/L (12-78); ALBUMIN/GLOBULIN RATIO 0.9 (1.0-2.7); ALKALINE PHOSPHATASE 93 U/L (46-116); ASPARTATE AMINO TRANSFERASE 22 U/L (15-37); BILIRUBIN,TOTAL 0.2 MG/DL (0.2-1.0)
[2018-05-21] MEDS ORDERED: ONDANSETRON ODT4 MG BC (17:58)
[2018-05-21 18:05] VITALS: BP 106/69
--- NOTE | 2018-05-21 18:34 | Emergency Room Report ---
History of Present Illness General Chief Complaint: Pain Source: Patient Present Illness HPI 32-year-old female presents ED for evaluation of generalized pain and nausea. History of sickle cell. States she is having a crisis. Pain is diffuse, 10 out of 10, nonradiating. Notes nausea and vomiting. Started a few days ago. States that her home medications are not working. Denies chest pain or shortness of breath. Denies fevers or chills. No other aggravating relieving factors. Denies any other associated symptoms Allergies: Coded Allergies: KETOROLAC (Verified Allergy, Mild, 01/03/18) METOCLOPRAMIDE (Unverified Allergy, Unknown, 01/03/18) PROCHLORPERAZINE (Unverified Allergy, Unknown, 01/03/18) Patient History Past Medical History: asthma Past Surgical History: none Pertinent Family History: none Social History: Denies: smoking, alcohol use, drug use Last Menstrual Period: DNC 7 wk ago Now: No Immunizations: UTD Reviewed Nursing Documentation: PMH: Agreed; PSxH: Agreed Nursing Documentation-PMH Hx Cardiac Problems: No Hx Asthma: Yes Hx Cancer: No Hx Gastrointestinal Problems: No - Sickle Cell Hx Neurological Problems: No Review of Systems All Other Systems: negative except mentioned in HPI Physical Exam Vital Signs Date Time Temp Pulse Resp B/P (MAP) Pulse Ox O2 Delivery O2 Flow Rate FiO2 05/21/18 15:58 98.4 88 20 107/72 100 Room Air 98.4 Sp02 EP Interpretation: reviewed, normal General Appearance: no apparent distress, alert, GCS 15, non-toxic Head: normocephalic, atraumatic Eyes: bilateral eye normal inspection, bilateral eye PERRL ENT: hearing grossly normal, normal pharynx, no angioedema, normal voice Neck: full range of motion, supple/symm/no masses Respiratory: chest non-tender, lungs clear, normal breath sounds, speaking full sentences Cardiovascular #1: regular rate, rhythm, no edema Cardiovascular #2: 2+ carotid (R), 2+ carotid (L), 2+ radial (R), 2+ radial (L) , 2+ dorsalis pedis (R), 2+ dorsalis pedis (L) Gastrointestinal: normal bowel sounds, non tender, soft, non-distended, no guarding, no rebound Rectal: deferred Genitourinary: normal inspection, no CVA tenderness Musculoskeletal: back normal, gait/station normal, normal range of motion, non- tender Neurologic: alert, oriented x3, responsive, motor strength/tone normal, sensory intact, speech normal Psychiatric: judgement/insight normal, memory normal, mood/affect normal, no suicidal/homicidal ideation Reflexes: 3+ bicep (R), 3+ bicep (L), 3+ tricep (R), 3+ tricep (L), 3+ knee (R) , 3+ knee (L) Skin: normal color, no rash, warm/dry, well hydrated Lymphatic: no adenopathy Medical Decision Making Diagnostic Impression: Primary Impression: Chronic pain Qualified Codes: G89.29 - Other chronic pain Additional Impression: Sickle cell anemia Qualified Codes: D57.1 - Sickle-cell disease without crisis ER Course Hospital Course 32-year-old F presents ED complaining of generalized body pain and nausea, h/o sickle cell Differential diagnoses include: IN/unstable angina, sickle cell crisis, sepsis, UTI, pneumonia Clinical course Patient placed on stretcher. on phototypesetting equipment monitor. After initial history and physical I ordered labs, Zofran. I ordered [place] here and Zofran ODT. Patient is requesting IM injections of medications. She is well-known to [facility]. Has been here multiple times for pain-related complaints. Patient is also seen under the name Erasmo Kirkland. I agree to provide patient with stronger pain medication if her labs show abnormality. There is no leukocytosis, hemoglobin/hematocrit within normal limits. electrolytes okay. I explained findings to the patient. Patient agrees to discharge Diagnosis - sickle cell crisis, chronic pain Stable and discharged to home with Rx Zofran. Followup with PMD. Return to ED if symptoms recur or worsen Labs Test 05/21/18 16:55 White Blood Count 6.2 K/UL (4.8-10.8) Red Blood Count 3.73 M/UL (4.20-5.40) Hemoglobin 9.2 G/DL (12.0-16.0) Hematocrit 29.9 % (37.0-47.0) Mean Corpuscular Volume 80 FL (80-99) Mean Corpuscular Hemoglobin 24.7 PG (27.0-31.0) Mean Corpuscular Hemoglobin Concent 30.8 G/DL (32.0-36.0) Red Cell Distribution Width 14.6 % (11.6-14.8) Platelet Count 295 K/UL (150-450) Mean Platelet Volume 7.6 FL (6.5-10.1) Neutrophils (%) (Auto) 51.5 % (45.0-75.0) Lymphocytes (%) (Auto) 37.4 % (20.0-45.0) Monocytes (%) (Auto) 7.4 % (1.0-10.0) Eosinophils (%) (Auto) 2.8 % (0.0-3.0) Basophils (%) (Auto) 0.8 % (0.0-2.0) Reticulocyte Count 0.4 % (0.0-2.0) Sodium Level 139 MMOL/L (136-145) Potassium Level 3.5 MMOL/L (3.5-5.1) Chloride Level 107 MMOL/L (98-107) Carbon Dioxide Level 26 MMOL/L (21-32) Anion Gap 6 mmol/L (5-15) Blood Urea Nitrogen 9 mg/dL (7-18) Creatinine 0.9 MG/DL (0.55-1.30) Estimat Glomerular Filtration Rate > 60 mL/min (>60) Glucose Level 110 MG/DL (74-106) Calcium Level 8.4 MG/DL (8.5-10.1) Total Bilirubin 0.2 MG/DL (0.2-1.0) Aspartate Amino Transf (AST/SGOT) 22 U/L (15-37) Alanine Aminotransferase (ALT/SGPT) 14 U/L (12-78) Alkaline Phosphatase 93 U/L (46-116) Total Protein 6.5 G/DL (6.4-8.2) Albumin 3.0 G/DL (3.4-5.0) Globulin 3.5 g/dL Albumin/Globulin Ratio 0.9 (1.0-2.7) Last Vital Signs Date Time Temp Pulse Resp B/P (MAP) Pulse Ox O2 Delivery O2 Flow Rate FiO2 05/21/18 18:05 97.9 88 20 106/69 97 Room Air 98.4 Status: improved Disposition: HOME, SELF-CARE Condition: Stable Scripts Ondansetron Odt* (ZOFRAN ODT*) 4 Mg Tab.rapdis 4 MG BC EVERY 6 HOURS PRN for Nausea & Vomiting, #10 TAB 0 Refills Prov: Jules Garduno MD 05/21/18 Referrals: NOT CHOSEN IPA/,REFERRING (PCP) Patient Instructions: Sickle Cell Anemia, Adult Jules Garduno MD May 21, 2018 18:33
== END 2018-05-21 18:05 | disposition home or self-care (01) ==
LOC: EMR 16:14
DX: G89.29 Other chronic pain (principal); D57.1 Sickle-cell disease without crisis
CPT/HCPCS: 36415; 80053; 85025; 85044; 99284

== ENCOUNTER 2018-07-13 20:35 | Emergency (ER) | payer SELFPAY ==
[~2018-07-13] VITALS: Ht 157.5 cm; Wt 59.0 kg
[~2018-07-13 20:35] MED LIST changes: +ONDANSETRON ODT4 MG BC
[2018-07-13 20:52] VITALS: BP 107/76
[2018-07-13] MEDS ORDERED: Ondansetron ODT 8mg tab ORAL ONE (21:15)
[2018-07-13] MEDS ORDERED: Morphine Sulfate 4mg/ml Inj (IV/IM USE ONLY) IM ONE (21:15)
[2018-07-13] MEDS ORDERED: DiphenhydrAMINE 50mg/ml Inj IM ONE (21:15)
--- NOTE | 2018-07-13 21:53 | Emergency Room Report ---
History of Present Illness General Chief Complaint: Pain Source: Patient Present Illness HPI Patient is a 32-year-old female who presented after increased extremity pain and nausea. The patient had prior history of sickle cell disease. Patient multiple visits for similar symptoms in the past. The patient reports having recent blood drawn states her hemoglobin was greater than 9 at the time. She denies any fever. She denies any dysuria. She denies any weakness or lightheadedness. She reports having difficulty keeping her medications down. He states she has pain medications at home. Allergies: Coded Allergies: KETOROLAC (Verified Allergy, Mild, 01/03/18) METOCLOPRAMIDE (Unverified Allergy, Unknown, 01/03/18) MORPHINE (Verified Allergy, Unknown, 07/13/18) PROCHLORPERAZINE (Unverified Allergy, Unknown, 01/03/18) Patient History Past Medical History: see triage record Last Menstrual Period: yesterday Now: No Reviewed Nursing Documentation: PMH: Agreed; PSxH: Agreed Nursing Documentation-PMH Hx Cardiac Problems: No Hx Asthma: Yes Hx Cancer: No Hx Gastrointestinal Problems: No - Sickle Cell History Of Psychiatric Problem: Yes - depression Hx Neurological Problems: No Review of Systems All Other Systems: negative except mentioned in HPI Physical Exam Vital Signs Date Time Temp Pulse Resp B/P (MAP) Pulse Ox O2 Delivery O2 Flow Rate FiO2 07/13/18 20:47 98.6 93 16 107/76 97 Room Air Sp02 EP Interpretation: reviewed, normal General Appearance: normal inspection, well appearing, no apparent distress, alert, GCS 15, non-toxic Head: atraumatic ENT: normal ENT inspection, hearing grossly normal, normal voice Neck: normal inspection, full range of motion, supple, no bony tend Respiratory: normal inspection, lungs clear, normal breath sounds, no respiratory distress, no retraction, no wheezing Cardiovascular #1: regular rate, rhythm, no edema Gastrointestinal: normal inspection, normal bowel sounds, non tender, soft, no guarding, no hernia Genitourinary: no CVA tenderness Musculoskeletal: normal inspection, back normal, normal range of motion Neurologic: normal inspection, alert, oriented x3, responsive, scorer single III-XII nml as tested, speech normal Psychiatric: normal inspection, judgement/insight normal, mood/affect normal Skin: normal inspection, normal color, no rash Medical Decision Making Diagnostic Impression: Primary Impression: Sickle cell anemia Additional Impression: Chronic pain ER Course The patient presented for generalized body pain. Differential diagnosis included was not limited to the sickle cell crisis, anemia, gastroenteritis among others. Patient has a benign exam and does not appear to require any further imaging or laboratory testing at this time. The patient was given medications for pain as well as for vomiting. The patient does not appear to have any evidence of severe dehydration or severe patient this time. The patient reportedly has medications at home.The patient will be discharged and follow-up with her primary care physician Last Vital Signs Date Time Temp Pulse Resp B/P (MAP) Pulse Ox O2 Delivery O2 Flow Rate FiO2 07/13/18 20:47 98.6 93 16 107/76 97 Room Air Status: improved Disposition: HOME, SELF-CARE Condition: Stable Referrals: NON PHYSICIAN (PCP) Patient Instructions: Sickle Cell Anemia, Adult Selvin Lee MD Jul 13, 2018 21:53
[2018-07-13 22:28] VITALS: BP 114/78
== END 2018-07-13 22:28 | disposition home or self-care (01) ==
LOC: EMR 21:34
DX: D57.1 Sickle-cell disease without crisis (principal); G89.29 Other chronic pain; R11.11 Vomiting without nausea; F32.9 Major depressive disorder, single episode, unspecified; M79.10 Myalgia, unspecified site; Z88.3 Allergy status to other anti-infective agents; Z88.5 Allergy status to narcotic agent; Z88.8 Allergy status to other drugs, medicaments and biological substances
CPT/HCPCS: 96372; 99283; J1200; J2270; Q0162

== ENCOUNTER 2018-07-21 03:32 | Emergency (ER) | payer SELFPAY ==
[~2018-07-21] VITALS: Ht 157.5 cm; Wt 59.0 kg
[2018-07-21 04:00] VITALS: BP 102/71
--- NOTE | 2018-07-21 04:19 | Emergency Room Report ---
History of Present Illness General Chief Complaint: Pain Source: Patient Present Illness HPI Is a 32-year-old female who has a history of sickle cell disease. She presents with sickle cell crisis. She has body pain is all over her body. 10 out of 10. Onset for last 3 days but no nausea no vomiting. Typical of her previous crisis. Denies any other complaint. She said she was here 2 weeks ago. Denies any fever or chills. Does have a cough and congestion. Out of her pain medication and hydroxyurea. She says she lives in the [place] but happened to be in this area visiting her mom and that is why she is here. Allergies: Coded Allergies: KETOROLAC (Verified Allergy, Mild, 07/21/18) METOCLOPRAMIDE (Unverified Allergy, Unknown, 07/21/18) MORPHINE (Verified Allergy, Unknown, 07/21/18) PROCHLORPERAZINE (Unverified Allergy, Unknown, 07/21/18) Patient History Past Medical History: see triage record, old chart reviewed Past Surgical History: other Pertinent Family History: none Social History: Denies: smoking Last Menstrual Period: Now: No Immunizations: other Reviewed Nursing Documentation: PMH: Agreed; PSxH: Agreed Nursing Documentation-PMH Hx Cardiac Problems: No Hx Asthma: Yes Hx Cancer: No Hx Gastrointestinal Problems: No - Sickle Cell Hx Neurological Problems: Yes - SICKLE CELL DISEASE. Review of Systems Eye: Denies: eye pain, blurred vision ENT: Denies: ear pain, nose congestion, throat swelling Respiratory: Denies: cough, shortness of breath Cardiovascular: Denies: chest pain, palpitations Gastrointestinal: Denies: abdominal pain, diarrhea, nausea, vomiting Musculoskeletal: Reports: back pain, joint pain Skin: Denies: rash Neurological: Denies: headache, numbness Endocrine: Denies: increased thirst, increased urine Hematologic/Lymphatic: Denies: easy bruising All Other Systems: negative except mentioned in HPI Physical Exam Vital Signs Date Time Temp Pulse Resp B/P (MAP) Pulse Ox O2 Delivery O2 Flow Rate FiO2 07/21/18 03:44 98.1 77 16 121/77 100 Room Air vitals normal Sp02 EP Interpretation: reviewed, normal General Appearance: well appearing, no apparent distress, alert Head: normocephalic, atraumatic Eyes: bilateral eye PERRL, bilateral eye EOMI ENT: hearing grossly normal, normal pharynx Neck: full range of motion, supple, no meningismus Respiratory: chest non-tender, lungs clear, normal breath sounds Cardiovascular #1: regular rate, rhythm, no murmur Gastrointestinal: normal bowel sounds, non tender, no mass, no organomegaly, no bruit, non-distended Musculoskeletal: back normal, gait/station normal, normal range of motion Psychiatric: mood/affect normal Skin: warm/dry Medical Decision Making Diagnostic Impression: Primary Impression: Sickle cell pain crisis Additional Impression: Chronic pain Qualified Codes: G89.4 - Chronic pain syndrome ER Course Patient presents with sickle cell crisis per she looks very comfortable. She was here on July 13. She claimed that this only place she went to. She was actually at [place] on July 12, May 03, April 13. I suspect and opioid dependency and drug-seeking behavior. Last Vital Signs Date Time Temp Pulse Resp B/P (MAP) Pulse Ox O2 Delivery O2 Flow Rate FiO2 07/21/18 04:00 98.4 76 16 102/71 100 Room Air Status: improved Disposition: HOME, SELF-CARE Condition: Stable Scripts Hydroxyurea* (HYDREA*) 500 Mg Capsule 500 MG PO BID, #100 CAP Prov: Stephen Tee MD 07/21/18 Referrals: NON PHYSICIAN (PCP) Additional Instructions: Follow-up with your doctor for refill your medication. Return if symptom worsen. Stephen Tee MD Jul 21, 2018 04:19
[2018-07-21] MEDS ORDERED: HYDREA500 MG PO (04:22)
[2018-07-21 04:30] VITALS: BP 102/71
[2018-07-21] MEDS ORDERED: Norco 5mg/325mg tab ORAL ONE (04:30)
== END 2018-07-21 04:44 | disposition home or self-care (01) ==
LOC: EMR 04:00
DX: D57.00 Hb-SS disease with crisis, unspecified (principal); G89.4 Chronic pain syndrome; R05 Cough; Z88.6 Allergy status to analgesic agent; Z88.8 Allergy status to other drugs, medicaments and biological substances
CPT/HCPCS: 99282

== ENCOUNTER 2018-11-22 00:39 | Emergency (ER) | payer SELFPAY ==
[~2018-11-22] VITALS: Ht 157.5 cm; Wt 59.4 kg
[2018-11-22] MEDS: HYDROcodone/Acetamin 5/325 tab ORAL ONE ×2 (01:15→01:28)
[2018-11-22] MEDS ORDERED: HYDREA500 MG PO (01:16)
--- NOTE | 2018-11-22 01:17 | Emergency Room Report ---
History of Present Illness General Chief Complaint: Pain Source: Patient, Medical Record Present Illness HPI Is a 33-year-old female with a history of sickle cell. She presents with chief complaint of coughing congestion for last 4 days and also sickle cell pain. Pain is 9 out of 10. Diffuse body pain. Has nausea and vomiting. No fever or chills. No diarrhea. Nothing made it better. Unable to take her pain medication. Asking for refill on her hydroxyurea. Allergies: Coded Allergies: KETOROLAC (Verified Allergy, Mild, 07/21/18) METOCLOPRAMIDE (Unverified Allergy, Unknown, 07/21/18) MORPHINE (Verified Allergy, Unknown, 07/21/18) PROCHLORPERAZINE (Unverified Allergy, Unknown, 07/21/18) Patient History Past Medical History: see triage record, old chart reviewed Past Surgical History: other Pertinent Family History: none Social History: Denies: smoking Now: No Immunizations: other Reviewed Nursing Documentation: PMH: Agreed; PSxH: Agreed Nursing Documentation-PMH Past Medical History: No History, Except For Hx Cardiac Problems: No Hx Asthma: Yes Hx Cancer: No Hx Gastrointestinal Problems: No - Sickle Cell Hx Neurological Problems: Yes - SICKLE CELL DISEASE. Review of Systems Eye: Denies: eye pain, blurred vision ENT: Reports: nose congestion; Denies: ear pain, throat swelling Respiratory: Reports: cough; Denies: shortness of breath Cardiovascular: Denies: chest pain, palpitations Gastrointestinal: Denies: abdominal pain, diarrhea, nausea, vomiting Musculoskeletal: Reports: back pain, joint pain, muscle pain Skin: Denies: rash Neurological: Denies: headache, numbness Endocrine: Denies: increased thirst, increased urine Hematologic/Lymphatic: Denies: easy bruising All Other Systems: negative except mentioned in HPI Physical Exam Vital Signs Date Time Temp Pulse Resp B/P (MAP) Pulse Ox O2 Delivery O2 Flow Rate FiO2 11/22/18 00:49 98.4 82 18 125/80 97 Room Air vitals normal Sp02 EP Interpretation: reviewed, normal General Appearance: well appearing, no apparent distress, alert Head: normocephalic, atraumatic Eyes: bilateral eye PERRL, bilateral eye EOMI ENT: hearing grossly normal, normal pharynx Neck: full range of motion, supple, no meningismus Respiratory: chest non-tender, lungs clear, normal breath sounds Cardiovascular #1: regular rate, rhythm, no murmur Gastrointestinal: normal bowel sounds, non tender, no mass, no organomegaly, no bruit, non-distended Musculoskeletal: back normal, gait/station normal, normal range of motion Psychiatric: mood/affect normal Skin: warm/dry Medical Decision Making Diagnostic Impression: Primary Impression: Sickle cell pain crisis Additional Impression: Upper respiratory infection Qualified Codes: J06.9 - Acute upper respiratory infection, unspecified ER Course Patient presents with upper rest or infection and her sickle cell pain. She has a strong opioid dependency and drug-seeking behavior. No evidence of acute chest syndrome or plastic crisis. We'll discharge home. Last Vital Signs Date Time Temp Pulse Resp B/P (MAP) Pulse Ox O2 Delivery O2 Flow Rate FiO2 11/22/18 00:49 98.4 82 18 125/80 97 Room Air Status: improved Disposition: HOME, SELF-CARE Condition: Stable Scripts Hydroxyurea* (HYDREA*) 500 Mg Capsule 500 MG PO BID, #14 CAP Prov: Stephen Tee MD 11/22/18 Additional Instructions: Follow-up with your doctor in 7 days. Return if symptom worsen. Stephen Tee MD Nov 22, 2018 01:17
[2018-11-22 01:23] VITALS: BP 125/80
--- NOTE | 2018-11-22 01:24 | NUR ---
ED Nurse Note: pt walked in c/o bodyache and cough x 4 days, denies fever, pt AA&ox4, gcs=15, skin warm and dry, resp even and unlabored on RA, afebrile, no cough at this time, vss, will cont monitor.
--- NOTE | 2018-11-22 01:26 | NUR ---
ED Nurse Note: pt refused norco, pt states she wants stronger injection, ERMD notified.
[2018-11-22 01:30] VITALS: BP 122/67
--- NOTE | 2018-11-22 01:30 | NUR ---
ED Nurse Note: pt cleared to be d/c per ERMD, pt d/c and aftercare instruction provided w/ prescription, pt education done via discussion and handout, pt advised to follow up with pcp to continue care or return to ed if sx worsen or new sx develop, pt verbalized understanding and agrees with plan, pt refused to sign discharge paperwork, pt vss, ambulatory w/ steady gait, left w/ all belongings.
== END 2018-11-22 01:30 | disposition home or self-care (01) ==
LOC: EMR 01:12
DX: D57.00 Hb-SS disease with crisis, unspecified (principal); J06.9 Acute upper respiratory infection, unspecified; J45.909 Unspecified asthma, uncomplicated; Z88.6 Allergy status to analgesic agent; Z88.8 Allergy status to other drugs, medicaments and biological substances
CPT/HCPCS: 96372; 99283; J2550